=== PATIENT | male | born 1945 | race Caucasian/White ===

== ENCOUNTER 2017-07-30 11:09 | Observation (INO) | payer OTHER ==
[~2017-07-30] VITALS: Ht 172.7 cm; Wt 80.5 kg
--- NOTE | 2017-07-31 18:23 | NUR ---
1400 - IRRIGANT IN: 90788/ OUT: 71460 -- URINE OUTPUT 1350
--- NOTE | 2017-08-01 02:20 | NUR ---
PT HAVING SOME PAIN, PRESSURE, AND BLADDER SPASMS. GAVE PERCOCET 10/325 MG PO AT 20:35. GAVE DITROPAN 5MG PO FOR BLADDER SPASM AT 20:45. FLUSHED PTS WOODS CATH WITH IRRIGATION OF STERILE WATER AT APPROXIMATELY 23:40 DUE TO COMPLAINTS OF PRESSURE. NO CLOTS NOTED. PT STATED, "THAT MADE IT FEEL BETTER." GAVE B&O SUPPOSITORY AT 23:40 FOR BLADDER SPASM. GAVE NORCO 2 TABS OF 5/325 MG AT 00:05. URINE OUTPUT CHANGING FROM ORANGE COLOR TO MORE YELLOWISH COLOR AT 02:25.
--- NOTE | 2017-08-01 06:20 | NUR ---
PT CBI HAD 18,000 ML IN AND 19,500 OUT = 1500 OF URINE OUTPUT FOR THE NIGHT OF 07/31-08/01/17. PT URINE COLOR BEGAN TURNING MORE YELLOW, BUT HAD STARTED TO TURN ORANGE AGAIN.
--- NOTE | 2017-08-01 12:00 | NUR ---
0900 - CBI STOPPED PER DR. BRIGITTE ROBINS.
--- NOTE | 2017-08-01 12:00 | NUR ---
1100 - SWITCHED PT TO LEG BAG DRAINAGE PER DR BRIGITTE ROBINS
== END 2017-08-01 16:00 | disposition home or self-care (01) ==
LOC: SDCH 11:09 → MED 20:01
PROVIDERS: ADMIT Urology
DX: C67.6 Malignant neoplasm of ureteric orifice (principal); N30.01 Acute cystitis with hematuria; N30.21 Other chronic cystitis with hematuria; N20.0 Calculus of kidney; N40.0 Benign prostatic hyperplasia without lower urinary tract symptoms; B20 Human immunodeficiency virus [HIV] disease; I10 Essential (primary) hypertension; K21.9 Gastro-esophageal reflux disease without esophagitis; Z87.891 Personal history of nicotine dependence; Z88.0 Allergy status to penicillin; Z79.899 Other long term (current) drug therapy
CPT/HCPCS: 84153; 96365; 96375; 96376; 97161-GP; C1894; C2617; G0378; J2704; J9280; Q9967